=== PATIENT | male | born 1980 | race American Indian/Alaskan Native ===

== ENCOUNTER 2017-03-17 10:33 | Emergency (ER) | payer OTHER ==
[2017-03-17 10:37] VITALS: O2SAT 98
--- NOTE | 2017-03-17 10:51 | ED PDOC ---
Lower Extremity Pain/Injury Time Seen by Provider: 03/17/17 10:34 Chief Complaint (Nursing): Lower Extremity Problem/Injury Chief Complaint (Provider): Left heel pain, few days, getting worse History Per: Patient History/Exam Limitations: no limitations Onset/Duration Of Symptoms: Days Current Symptoms Are (Timing): Still Present Severity: Moderate Pain Scale Rating Of: 6 Additional Complaint(s): Pt reports heel pain fora few days. No pain at rest. Pain with weight bearing/ walking. Pt denies trauma. No similar in the past. PT tried warm soaks and tylenol but it did not help. Past Medical History Reviewed: Historical Data, Nursing Documentation, Vital Signs Vital Signs: Last Vital Signs Temp 97.3 F L 03/17/17 10:37 Pulse 87 03/17/17 10:37 Resp 20 03/17/17 10:37 BP 109/76 03/17/17 10:37 Pulse Ox 98 03/17/17 10:37 - Medical History PMH: No Chronic Diseases - Surgical History Surgical History: No Surg Hx - Family History Family History: States: No Known Family Hx - Living Arrangements Living Arrangements: With Family - Social History Current smoker - smoking cessation education provided: No - Home Medications Home Medications: Ambulatory Orders Medication Instructions Recorded predniSONE [predniSONE Tab] 20 mg PO DAILY #12 tab 03/17/17 - Allergies Allergies/Adverse Reactions: Allergies Allergy/AdvReac Type Severity Reaction Status Date / Time No Known Allergies Allergy Verified 03/17/17 10:48 Review of Systems ROS Statement: Except As Marked, All Systems Reviewed And Found Negative Constitutional: Negative for: Fever, Chills Musculoskeletal: Positive for: Leg Pain (Left heel pain, foot pain, states it radiates when walking to posterior ankle) Skin: Negative for: Rash, Lesions, Bruising Physical Exam - Reviewed Nursing Documentation Reviewed: Yes Vital Signs Reviewed: Yes - Physical Exam Appears: Positive for: Well, Non-toxic, No Acute Distress Head Exam: Positive for: ATRAUMATIC, NORMAL INSPECTION, NORMOCEPHALIC Skin: Positive for: Normal Color (No rash, no erythema, no ecchymosis ), Warm Eye Exam: Positive for: Normal appearance ENT: Positive for: Normal ENT Inspection Neck: Positive for: Normal Respiratory: Negative for: Accessory Muscle Use Pulses-Dorsalis Pedis (L): 2+ Pulses-Post. Tibialis (L): 2+ Back: Positive for: Normal Inspection Extremity: Positive for: Normal ROM, Tenderness (Left heel, no osmani spur palpated), Capillary Refill. Negative for: Calf Tenderness, Deformity, Swelling Neurologic/Psych: Positive for: Alert, Oriented - ECG O2 Sat by Pulse Oximetry: 98 Medical Decision Making Medical Decision Making: x-ray normal. Discussed stretching, motrin for pain and inflammation and f/u with podiatry. Pt given crutches. Disposition - Clinical Impression Clinical Impression: Tendonitis - Patient ED Disposition Is Patient to be Admitted: No Counseled Patient/Family Regarding: Diagnosis, Need For Followup, Rx Given - Disposition Disposition: Routine/Home Disposition Time: 11:17 Condition: GOOD Prescriptions: predniSONE [predniSONE Tab] 20 mg PO DAILY #12 tab Instructions: Tendinitis (ED) Forms: [facility] ([place])
[2017-03-17 11:31] VITALS: BP 128/78; PULSE 78; RESP 17; TEMP 97
--- NOTE | 2017-03-17 11:45 | RAD ---
PROCEDURE: Left Foot Radiographs. HISTORY: heel pain COMPARISON: None. FINDINGS: BONES: No fracture. JOINTS: Unremarkable. SOFT TISSUES: Normal. OTHER FINDINGS: None. IMPRESSION: No demonstrated fracture or dislocation.
== END 2017-03-17 11:00 | disposition home or self-care (01) ==
LOC: H.ER 10:33 → MERGE 10:33 → H.ER 11:00
DX: M77.32 Calcaneal spur, left foot (principal)

== ENCOUNTER 2017-10-17 12:24 | Emergency (ER) | payer MEDICARE, OTHER ==
[2017-10-17 12:29] VITALS: BP 134/85; PULSE 91; RESP 18; TEMP 97.8; O2SAT 99
[2017-10-17] MEDS ORDERED: Naproxen 500 MG TAB PO STA (12:39)
[2017-10-17] MEDS ORDERED: Naproxen 500 MG TAB PO ONE (12:45)
--- NOTE | 2017-10-17 12:47 | ED PDOC ---
Upper Extremity Pain/Injury Time Seen by Provider: 10/17/17 12:26 Chief Complaint (Nursing): Upper Extremity Problem/Injury Chief Complaint (Provider): Right Shoulder Problem History Per: Patient History/Exam Limitations: no limitations Onset/Duration Of Symptoms: Days (x2 weeks) Current Symptoms Are (Timing): Still Present Quality: Sharp Additional Complaint(s): 36 year old male with a history of htn and hyperlipidemia presents to the ED for right shoulder pain. Patient reports he was at the gym lifting when he felt a sharp pain in his right trap 2 week ago. The pain resolved on its own. About a week ago, his pain returned. He states his pain is worse with movement and when he leans forward. Patient has no other medical complaints. PMD: Dr. Waite Past Medical History Reviewed: Historical Data, Nursing Documentation, Vital Signs Vital Signs: Last Vital Signs Temp 97.8 F 10/17/17 12:27 Pulse 91 H 10/17/17 12:27 Resp 18 10/17/17 12:27 BP 134/85 10/17/17 12:27 Pulse Ox 99 10/17/17 12:27 - Medical History PMH: HTN, Hyperlipidemia - Surgical History Surgical History: Denies: No Surg Hx Other surgeries: Heart transplant 2014 - Family History Family History: States: Unknown Family Hx - Social History Current smoker - smoking cessation education provided: No Ex-Smoker (has not smoked in the last 12 months): No Alcohol: Other (yes) Drugs: Denies - Immunization History Hx Tetanus Toxoid Vaccination: No Hx Influenza Vaccination: No Hx Pneumococcal Vaccination: No - Home Medications Home Medications: Ambulatory Orders Medication Instructions Recorded Azithromycin [Zithromax] 250 mg PO DAILY #4 cap 11/10/12 Lisinopril 20 mg PO DAILY #30 tab 11/10/12 predniSONE [predniSONE Tab] 20 mg PO DAILY #12 tab 03/17/17 Cyclobenzaprine [Cyclobenzaprine 10 mg PO Q8H PRN #12 tab 10/17/17 HCl] - Allergies Allergies/Adverse Reactions: Allergies Allergy/AdvReac Type Severity Reaction Status Date / Time No Known Allergies Allergy Unverified 11/10/12 21:39 Review of Systems ROS Statement: Except As Marked, All Systems Reviewed And Found Negative Musculoskeletal: Positive for: Shoulder Pain (right) Physical Exam - Reviewed Nursing Documentation Reviewed: Yes Vital Signs Reviewed: Yes - Physical Exam Appears: Positive for: Non-toxic, No Acute Distress Head Exam: Positive for: ATRAUMATIC Skin: Positive for: Normal Color, Warm, DRY Eye Exam: Positive for: Normal appearance Neck: Positive for: Normal Cardiovascular/Chest: Negative for: Bradycardia, Tachycardia Respiratory: Negative for: Respiratory Distress Pulses-Radial (L): 2+ Pulses-Radial (R): 2+ Extremity: Positive for: Normal ROM (in right shoulder), Tenderness (tenderness in right trap, no bony tenderness ). Negative for: Deformity, Swelling Neurologic/Psych: Positive for: Alert - ECG O2 Sat by Pulse Oximetry: 99 (RA) Pulse Ox Interpretation: Normal Medical Decision Making Medical Decision Making: Time: 12:39 Initial Plan: --Flexeril 10 mg PO --Naproxen 500 mg PO --Right shoulder XR Shoulder x-ray without acute fracture or dislocation. Pt has appointment with his orthopedic in 2 weeks. Scribe Attestation: Documented by Dana Escobar, acting as a scribe forSherine Larios PA-C. Provider Scribe Attestation: All medical record entries made by the Scribe were at my direction and personally dictated by me. I have reviewed the chart and agree that the record accurately reflects my personal performance of the history, physical exam, medical decision making, and the department course for this patient. I have also personally directed, reviewed, and agree with the discharge instructions and disposition. Disposition - Clinical Impression Clinical Impression: Trapezius muscle strain - Patient ED Disposition Is Patient to be Admitted: No Counseled Patient/Family Regarding: Diagnosis, Need For Followup, Rx Given - Disposition Referrals: Clark Norris MD [Staff Provider] - Disposition: Routine/Home Disposition Time: 13:16 Condition: STABLE Prescriptions: Cyclobenzaprine [Cyclobenzaprine HCl] 10 mg PO Q8H PRN #12 tab PRN Reason: Muscle Spasm Instructions: Muscle Strain (DC) Forms: [facility] (H[place])
[2017-10-17] MEDS ORDERED: Oxycodone/Acetaminophen 5/325 mg Tab PO STA (13:46)
[2017-10-17] MEDS ORDERED: Oxycodone/Acetaminophen 5/325 mg Tab ONE (13:50)
--- NOTE | 2017-10-17 15:22 | RAD ---
Date of service: 10/17/2017 PROCEDURE: Radiographs of the Right Shoulder HISTORY: pain, trapezius COMPARISON: No prior. FINDINGS: BONES: Normal. No fracture. JOINTS: Normal. Glenohumeral and acromioclavicular joints preserved. No osteoarthritis. SOFT TISSUES: Normal. OTHER FINDINGS: None. IMPRESSION: Normal radiographs of the right shoulder.
== END 2017-10-17 14:22 | disposition home or self-care (01) ==
LOC: H.ER 12:24
DX: M25.511 Pain in right shoulder (principal); E78.5 Hyperlipidemia, unspecified; I10 Essential (primary) hypertension; Z94.1 Heart transplant status